=== PATIENT | female | born 1985 ===

== ENCOUNTER 2023-04-05 09:30 | Emergency (ER) | payer MEDICAID ==
[~2023-04-05] VITALS: Ht 167.6 cm; Wt 75.1 kg
[2023-04-05] MEDS ORDERED: phenobarbital inj 130 MG in normal saline 100ml IV soln 99 ML IV SCH (14:00)
[2023-04-05 14:49] LABS: BASOPHILS # (AUTO) 0.1 X10'3 (0-0.2); BASOPHILS % (AUTO) 1.5 % (0-1); EOSINOPHILS % (AUTO) 0.6 % (0-6); HEMATOCRIT 41.2 % (35.0-45.0); HEMOGLOBIN 13.8 g/dl (12.0-16.0); LYMPHOCYTES # (AUTO) 1.1 X10'3 (1.1-4.8); LYMPHOCYTES % (AUTO) 17.5 % (21-51); MEAN CORPUSCULAR HEMOGLOBIN 29.3 PG (27.0-31.0); MEAN CORPUSCULAR HGB CONC 33.5 g/dL (33.0-36.5); MEAN CORPUSCULAR VOLUME 87.4 FL (78-98); MEAN PLATELET VOLUME 7.7 FL (7.4-10.4); MONOCYTES # (AUTO) 0.3 X10'3 (0-0.9); MONOCYTES % (AUTO) 5.5 % (2-12); NEUTROPHILS # (AUTO) 4.6 X10'3 (1.8-7.7); NEUTROPHILS % (AUTO) 74.9 % (42-75); PLATELET COUNT 332 X10'3 (140-440); RED BLOOD COUNT 4.72 X10'6 (4.20-5.60); RED CELL DISTRIBUTION WIDTH 14.8 % (11.5-14.5); WHITE BLOOD COUNT 6.1 X10'3 (4.5-11.0)
[2023-04-05 14:54] LABS: BILIRUBIN,URINE NEGATIVE (Neg); CLARITY,URINE CLEAR (Clear); COLOR,URINE STRAW (Yellow); GLUCOSE, URINE NEGATIVE (Neg); KETONES,URINE NEGATIVE (Neg); LEUKOCYTE ESTERASE ,URINE NEGATIVE (Neg); NITRITES, URINE NEGATIVE (Neg); OCCULT BLOOD,URINE SMALL (Neg); PROTEIN,URINE NEGATIVE (Neg); UA COLLECTION TYPE CLN CATCH MIDSTREAM; UROBILINOGEN,URINE 0.2 E.U/dL (0.2-1.0)
[2023-04-05 14:57] LABS: ALANINE AMINOTRANSFERASE 35 U/L (12-78); ALBUMIN 3.8 G/DL (3.4-5.0); ALBUMIN/GLOBULIN RATIO 0.9 (1.1-1.5); ALKALINE PHOSPHATASE 53 IU/L (46-116); ANION GAP 8 (8-16); ASPARTATE AMINO TRANSFERASE 32 U/L (10-37); BILIRUBIN,TOTAL 0.8 MG/DL (0.1-1.0); BLOOD UREA NITROGEN 12 MG/DL (7-18); BUN/CREATININE RATIO 16.9 (10.0-20.0); CHLORIDE 103 MMOL/L (99-107); CREATININE 0.71 MG/DL (0.40-0.90); GLUCOSE 119 MG/DL (70-104); POTASSIUM 4.2 MMOL/L (3.5-5.1); SODIUM 137 MMOL/L (135-145); TOTAL CARBON DIOXIDE 25.6 MMOL/L (24-32); TOTAL PROTEIN 7.9 G/DL (6.4-8.2); eCRCL 101 ML/MIN; eGFR > 90 ML/MIN
[2023-04-05] MEDS ORDERED: phenobarbital inj 130 MG in normal saline 100ml IV soln 99 ML IV ONE ×2 (14:58→20:00)
[2023-04-05 15:00] LABS: ETHANOL < 10 MG/DL (<10)
[2023-04-05 15:03] LABS: URINE AMPHETAMINE SCREEN NEGATIVE (Neg); URINE BARBITUATE SCREEN NEGATIVE (Neg); URINE BENZODIAZEPINES SCREEN NEGATIVE (Neg); URINE CANNABINOID SCREEN NEGATIVE (Neg); URINE COCAINE SCREEN NEGATIVE (Neg); URINE METHADONE SCREEN NEGATIVE (Neg); URINE OPIATE SCREEN NEGATIVE (Neg); URINE PHENCYCLIDINE SCREEN NEGATIVE (Neg)
[2023-04-05 15:11] LABS: BACTERIA,URINE FEW /HPF (Neg); WBC,URINE 0-4 /HPF (0-4)
[2023-04-05 15:13] LABS: HCG SERUM QL NEGATIVE
[2023-04-05 15:14] LABS: SQUAMOUS EPITHELIAL CELL,UR MODERATE /LPF (FEW)
[2023-04-05 19:09] VITALS: BP 124/83
[2023-04-05] MEDS ORDERED: NALT50TA PO (19:49)
[2023-04-05 20:40] VITALS: PULSE 75; RESP 15; TEMP 98.5; O2SAT 99
== END 2023-04-05 20:45 | disposition home or self-care (01) ==
LOC: ER 09:31
DX: F10.139 Alcohol abuse with withdrawal, unspecified (principal); Z79.899 Other long term (current) drug therapy; Y90.0 Blood alcohol level of less than 20 mg/100 ml
CPT/HCPCS: 36415; 71045; 80053; 80305; 80320; 81001; 84484; 84703; 85025; 93005; 96365; 99285; J2560; J3490